=== PATIENT | male | born 1995 | race Caucasian/White ===

== ENCOUNTER 2019-11-21 20:24 | Emergency (ER) | payer SELFPAY ==
[2019-11-21 20:26] VITALS: BP 145/94; PULSE 105; RESP 18; TEMP 36.8; O2SAT 98; BMI 25.3
--- NOTE | 2019-11-21 20:28 | ED_ITS ---
Entered by Elin Alfaro, acting as scribe for HPI - Psych General: Chief Complaint: Psychiatric Symptoms Stated Complaint: SI Time Seen by Provider: 11/21/19 20:28 Source: patient, EMS and RN notes reviewed Mode of arrival: EMS Limitations: no limitations History of Present Illness: HPI Narrative: 44 yo male presents to ED stating he has no thoughts of suicidal nor homicidal ideations. The ambulance was called because the patient told his ex-girlfriend he had a knife and he wanted to kill himself. The patient states the knife was an empty threat this time. He said he is homeless, he used methamphetamines 2 days ago and has not really slept nor ate since he used methamphetamines. He said he told EMS he intended to use the knife on himself because he police to show up. He wanted the police to show up because he wanted a ride because his ex-girlfriend wouldn't let him go anywhere. So he threatened to kill himself so he could get out. MD complaint: suicidal ideation and other (wanted a ride) Onset (ago): hour(s) (1) Duration: constant History of same: Yes Relieving factors: none Exacerbating factors: none Context: significant life stressor Associated psychiatric symptoms: none Associated symptoms: Reports no associated symptoms Treatments prior to arrival: none If self harm: admits thoughts of self harm Details of plan: states wanted a ride Review of Systems General: Reports: other (negative unless marked) Const: Denies: fever, chills, body aches, fatigue, malaise or diaphoresis Eyes: Denies: change in vision or blurry vision ENMT: Denies: throat pain, painful swallowing, hoarseness, ear pain, ear discharge, Change in hearing or nasal discharge Card: Denies: chest pain, palpitations, irregular heart rhythm, syncope, pre- syncope, shortness of breath on exertion or shortness of breath when lying down Resp: Denies: shortness of breath, productive cough, non-productive cough, wheezing, coughing up blood or chest congestion GI: Denies: abdominal pain, nausea, vomiting, vomiting blood, coffee grounds in vomit, diarrhea, constipation, cramping, blood in stool or black tarry stool : Denies: flank pain, difficulty urinating, painful urination, urinary frequency, urinary urgency, decreased urine ouput, urinary incontinence or blood in urine Musc: Denies: neck pain, back pain, extremity pain, extremity swelling, joint pain, joint swelling, joint warmth or joint stiffness Skin/Breast: Denies: rash, skin tenderness or yellow skin Neuro: Denies: headache, numbness in extremities, weakness in extremities, changes in sensation, lack of coordination, difficulty walking, dizziness, vertigo or confusion Endo: Denies: excessive thirst, tired all the time, cold intolerance, excessive sweating, flushing or hot flashes Horacio/Lymph: Denies: easy bruising, easy bleeding, petechiae or enlarged lymph nodes All/Imm: Denies: hives, throat swelling, tongue swelling, facial swelling or acute wheezing PFSH ED PFSH: Social History Smoking and tobacco status: current every day smoker Physical Exam Const: COMMON NORMALS: no apparent distress, oriented x3, no limitations, healthy appearing and well nourished EXAM LIMITATIONS: no altered mental status GENERAL APPEARANCE: cooperative, well kempt and well developed ORIENTATION/CONSCIOUSNESS: Yes awake HENMT: COMMON NORMALS: normocephalic, head/scalp atraumatic, hearing grossly normal bilaterally, external ears normal, EAC's normal, external nose normal and moist oral mucous membranes HEAD & SCALP: normal to inspection, normocephalic and atraumatic FACE & SINUS: normal facial exam and face symmetric NOSE: external nose normal and nares normal EXTERNAL EAR: Yes external ears normal EXTERNAL AUDITORY CANAL: EAC's normal MOUTH: oral and palatal mucosa normal and tongue normal Neck/C-Spine: COMMON NORMALS: full ROM, no lymphadenopathy, supple, no meningeal signs and no JVD GENERAL: Yes normal visual inspection and Yes trachea midline CERVICAL SPINE: Yes cervical ROM normal Chest: COMMONS NORMALS: inspection of chest normal and palpation of chest normal Resp: COMMON NORMALS: normal respiratory effort, no retractions, no use of accessory muscles and clear to auscultation bilaterally EFFORT & INSPECTION: Yes able to speak in complete sentences AUSCULTATION: clear to auscultation bilaterally Cardio: COMMON NORMALS: no JVD, regular rate, regular rhythm, S1 normal heart sound, S2 normal heart sound, no gallops, no clicks, no murmurs and no rub JUGULAR VENOUS DISTENTION: no JVD RATE: regular rate RHYTHM: regular rhythm HEART SOUNDS: S1 normal and S2 normal GI: COMMON NORMALS: soft to palpation, non-tender, no hepatosplenomegaly and no masses INSPECTION: Yes normal to inspection PALPATION: Yes soft and Yes no hepatosplenomegaly : COMMON NORMALS: Yes no CVA tenderness BLADDER/KIDNEY EXAM: Yes no CVA tenderness Back/Pelvis: COMMON NORMALS: no CVA tenderness, thoracic and lumbar spine normal to inspection, no thoracic nor lumbar tenderness and thoraco-lumbar ROM normal Extremity: COMMON NORMALS: normal to inspection, full ROM, normal capillary refill, no joint enlargement, no clubbing, cyanosis or edema and no calf tenderness Neuro: COMMON NORMALS: oriented x3, CN's II-XII intact bilaterally, moves all extremities, no focal motor deficits and no sensory deficits noted MENINGEAL SIGNS: Yes no meningeal signs Psych: COMMON NORMALS: mental status grossly normal, thought process normal, cooperative, affect normal, speech normal and activity/motor behavior normal APPEARANCE: Yes well kempt SPEECH: Yes normal speech THOUGHT PROCESS: normal thought process Skin: COMMON NORMALS: no rashes or lesions noted, skin turgor normal, no jaundice, no petechiae and no mottling GENERAL SKIN EXAM: no rashes or lesions noted and turgor normal MDM - Psych MDM Narrative: Medical decision making narrative: The patient was seen by Dr. Noguera who felt that the patient was not suicidal. He felt that the patient could go home but if he changed his mind and did feel suicidal he could stay. I recommended and offered to keep the patient but he refused. He stated he just use this as a means to get away from his girlfriend. It sounds as though he has no intention of stopping his meth use. Ultimately I believe the patient use the suicide threat as a means to get away from his girlfriend. I believe he is malingering. I reviewed this with Dr. Noguera and he is in agreement. The patient was told he was free to go and I will discharge him but he ultimately decided to leave without discharge instructions or further guidance. He understood that he was leaving AGAINST MEDICAL ADVICE solely because I wanted to discuss his situation with him more and I was going to try to pre parole counseling aide him and convince him to stay as I do feel he has substance abuse problems but he refused to discuss anything any further and was adamant to be discharged. He signed out AGAINST MEDICAL ADVICE but he was encouraged to return if he change his mind. The patient left before he could be given discharge instructions. Discharge Plan Discharge Patient Disposition: Left Against Medical Advice Clinical Impression: Malingering Condition: Stable Prescriptions: No Action No Known Home Medications RF: 0 Coding Level of Care Code ED Plant Tender for Chg Fwd Exam Comprehensive The documentation recorded by the Angelina jara Valerie R, accurately reflects the service I personally performed and the decisions made by Teddy noguera Eli N Nov 21, 2019 20:24
--- NOTE | 2019-11-21 21:19 | PC.NURSE ---
Pt has decided to leave AMA. Pt signed AMA forms, witnessed and crisis hotline information provided to pt
--- NOTE | 2019-11-21 21:44 | PC.NURSE ---
RN reviewed and agrees with assessment
== END 2019-11-21 21:21 | disposition left against medical advice (07) ==
PROVIDERS: Emergency Provider Emergency Medicine
DX: Z76.5 Malingerer [conscious simulation] (principal); F17.200 Nicotine dependence, unspecified, uncomplicated; Z59.0 Homelessness; Z53.29 Procedure and treatment not carried out because of patient's decision for other reasons
CPT/HCPCS: 12345; 99284